=== PATIENT | female | born 1995 | race Caucasian/White ===

== ENCOUNTER 2020-03-07 11:36 | Emergency (ER) | payer OTHER, SELFPAY ==
[~2020-03-07] VITALS: Ht 167.6 cm; Wt 99.8 kg
[2020-03-07 11:46] VITALS: BP 161/100
[2020-03-07 12:14] VITALS: BP 161/100
== END 2020-03-07 12:15 | disposition home or self-care (01) ==
LOC: MED 11:36
DX: U07.1 COVID-19 (principal); J32.9 Chronic sinusitis, unspecified; Z90.49 Acquired absence of other specified parts of digestive tract
CPT/HCPCS: 99283; U0003

== ENCOUNTER 2020-03-12 14:42 | Emergency (ER) | payer OTHER, SELFPAY ==
[~2020-03-12] VITALS: Ht 167.6 cm; Wt 97.5 kg
[2020-03-12 15:01] VITALS: BP 108/65
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
--- NOTE | 2020-03-12 15:34 | NUR ---
Patient discharged with v/s stable. Written and verbal after care instructions given and explained. Patient alert, oriented and verbalized understanding of instructions. Ambulatory with steady gait. All questions addressed prior to discharge. ID band removed. Patient advised to follow up with PMD. Rx of ZOFRAN & NAPROSYN given. Patient educated on indication of medication including possible reaction and side effects. Opportunity to ask questions provided and answered.
[2020-03-12 15:35] VITALS: BP 108/65
== END 2020-03-12 15:34 | disposition home or self-care (01) ==
LOC: MED 14:42
DX: U07.1 COVID-19 (principal); R63.0 Anorexia; Z90.49 Acquired absence of other specified parts of digestive tract
CPT/HCPCS: 99283

== ENCOUNTER 2020-03-30 08:36 | Emergency (ER) | payer OTHER, SELFPAY ==
[~2020-03-30] VITALS: Ht 167.6 cm; Wt 101.6 kg
[2020-03-30 08:44] VITALS: BP 128/73
--- NOTE | 2020-03-30 08:48 | NUR ---
P AMBULATED TO BED 2.
--- NOTE | 2020-03-30 08:49 | NUR ---
24YO F C/O ANXIETY X 1 MONTH, WORSENING YESTERDAY. STATES SHE FEELS ANXIOUS DUE TO COVID + TEST LASY 02/28. UPON ASSESSMENT, PT SLIGHTLY TACHYCARDIC AT 100BPM, ALL OTHER VITALS WITHIN NORMAL RANGE. CLEAR BREATH SOUNDS. PT RESTING IN BED COMFORTABLY. ERMD MADE AWARE. medhx: asthma NKA
[2020-03-30 09:22] VITALS: BP 128/73
== END 2020-03-30 09:22 | disposition home or self-care (01) ==
LOC: MED 08:36
DX: U07.1 COVID-19 (principal); F41.9 Anxiety disorder, unspecified; J45.909 Unspecified asthma, uncomplicated; Z90.49 Acquired absence of other specified parts of digestive tract
CPT/HCPCS: 99283

== ENCOUNTER 2021-08-08 20:05 | Emergency (ER) | payer OTHER ==
[~2021-08-08] VITALS: Ht 167.6 cm; Wt 90.7 kg
[2021-08-08 20:15] VITALS: BP 142/95
--- NOTE | 2021-08-08 20:59 | NUR ---
PT AMBULATED TO BED 1
[2021-08-08] MEDS ORDERED: ALBU0.0912 INH (22:27)
[2021-08-08] MEDS ORDERED: ROBAC PO (22:27)
[2021-08-08] MEDS ORDERED: PRED20TA5 PO (22:27)
[2021-08-08] MEDS ORDERED: predniSONE 20 MG TAB PO ONE (23:00)
[2021-08-08 23:45] VITALS: BP 129/72
--- NOTE | 2021-08-08 23:46 | NUR ---
Patient discharged with v/s stable. Written and verbal after care instructions given and explained. Patient alert, oriented and verbalized understanding of instructions. Ambulatory with steady gait. All questions addressed prior to discharge. ID band removed. Patient advised to follow up with PMD. Rx of ALBUTEROL, PREDNISONE, CODEINE PHOSPHATE given. Patient educated on indication of medication including possible reaction and side effects. Opportunity to ask questions provided and answered.
[2021-08-09] MEDS ORDERED: ROBAC PO (12:45)
[2021-08-09] MEDS ORDERED: PRED20TA5 PO (12:45)
[2021-08-09] MEDS ORDERED: ALBU0.0912 INH (12:45)
== END 2021-08-08 23:46 | disposition home or self-care (01) ==
LOC: MED 20:05
DX: J20.9 Acute bronchitis, unspecified (principal); J45.909 Unspecified asthma, uncomplicated; Z79.899 Other long term (current) drug therapy; Z90.49 Acquired absence of other specified parts of digestive tract; Z98.890 Other specified postprocedural states
CPT/HCPCS: 71045; 99283; J7512; Q0092

== ENCOUNTER 2021-09-16 10:59 | Emergency (ER) | payer OTHER ==
[~2021-09-16] VITALS: Ht 167.6 cm; Wt 108.9 kg
[~2021-09-16 10:59] MED LIST: ALBU0.0912 INH; PRED20TA5 PO; ROBAC PO
[2021-09-16 11:04] VITALS: BP 123/94
--- NOTE | 2021-09-16 11:20 | NUR ---
RAD AT BEDSIDE
[2021-09-16] MEDS ORDERED: IBUP-2213 PO (12:35)
[2021-09-16] MEDS: IBUPROFEN 600 MG TAB PO ONE (12:41)
[2021-09-16 12:42] VITALS: BP 109/70
== END 2021-09-16 12:43 | disposition home or self-care (01) ==
LOC: MED 10:59
DX: S63.612A Unspecified sprain of right middle finger, initial encounter (principal); R03.0 Elevated blood-pressure reading, without diagnosis of hypertension; J45.909 Unspecified asthma, uncomplicated; X58.XXXA Exposure to other specified factors, initial encounter; Y93.89 Activity, other specified; Y92.89 Other specified places as the place of occurrence of the external cause; Y99.8 Other external cause status
CPT/HCPCS: 73130; 99283

== ENCOUNTER 2022-10-28 08:30 | Emergency (ER) | payer OTHER ==
[~2022-10-28] VITALS: Ht 167.6 cm; Wt 99.8 kg
[~2022-10-28 08:30] MED LIST changes: +IBUP-2213 PO
[2022-10-28 08:52] VITALS: BP 125/86; PULSE 90; RESP 18; TEMP 98.1; O2SAT 98
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
--- NOTE | 2022-10-28 09:23 | NUR ---
Patient being evaluated by Dr. Hill at bedside.
[2022-10-28] MEDS ORDERED: IBUPROFEN 400 MG TAB PO ONE (09:25)
[2022-10-28] MEDS ORDERED: NAPR-1704 PO (09:45)
[2022-10-28 10:02] VITALS: BP 122/74; PULSE 89; RESP 19; TEMP 98.2; O2SAT 98
== END 2022-10-28 10:07 | disposition home or self-care (01) ==
LOC: MED 08:30
DX: S29.011A Strain of muscle and tendon of front wall of thorax, initial encounter (principal); J45.909 Unspecified asthma, uncomplicated; Z79.899 Other long term (current) drug therapy; Z98.51 Tubal ligation status; V49.88XA Car occupant (driver) (passenger) injured in other specified transport accidents, initial encounter; Y93.89 Activity, other specified; Y92.89 Other specified places as the place of occurrence of the external cause; Y99.8 Other external cause status
CPT/HCPCS: 71045; 99283

== ENCOUNTER 2023-02-12 10:45 | Emergency (ER) | payer OTHER ==
[~2023-02-12] VITALS: Ht 167.6 cm; Wt 113.6 kg
[~2023-02-12 10:45] MED LIST changes: +NAPR-1704 PO
[2023-02-12 11:00] VITALS: BP 110/75; PULSE 81; RESP 20; TEMP 97.9; O2SAT 97
[2023-02-12 12:35] LABS: FLU A ANTIGEN negative (NEGATIVE); FLU B ANTIGEN NEGATIVE (NEGATIVE)
[2023-02-12] MEDS ORDERED: AZIT250T4 PO (12:50)
[2023-02-12] MEDS ORDERED: ALBU0.0912 INH (12:50)
[2023-02-12] MEDS ORDERED: PROM118S5 PO (12:50)
[2023-02-12] MEDS ORDERED: PRED10TA5 PO (12:50)
[2023-02-12] MEDS ORDERED: MUC600 PO (12:50)
== END 2023-02-12 12:55 | disposition home or self-care (01) ==
LOC: MED 10:45
DX: J20.9 Acute bronchitis, unspecified (principal); Z20.822 Contact with and (suspected) exposure to COVID-19; F41.9 Anxiety disorder, unspecified; Z79.899 Other long term (current) drug therapy
CPT/HCPCS: 36415; 71046; 87449; 99284

== ENCOUNTER 2023-07-25 18:10 | Emergency (ER) | payer OTHER ==
[~2023-07-25] VITALS: Ht 170.2 cm; Wt 117.9 kg
[~2023-07-25 18:10] MED LIST changes: +AZIT250T4 PO; +MUC600 PO; +PRED10TA5 PO; +PROM118S5 PO
[2023-07-25 18:23] VITALS: BP 141/104; PULSE 94; RESP 17; TEMP 98; O2SAT 97
[2023-07-25 19:19] LABS: BASOPHILS # (AUTO) 0.1 K/uL (0.00-0.22); BASOPHILS % (AUTO) 0.6 % (0.0-2.0); EOSINOPHILS # (AUTO) 0.1 K/uL (0-0.4); EOSINOPHILS % (AUTO) 1.3 % (0.0-4.0); HEMATOCRIT 37.4 % (36-48); LYMPHOCYTES # (AUTO) 2.4 K/uL (2.5-16.5); LYMPHOCYTES % (AUTO) 26.4 % (20.5-51.1); MEAN CORPUSCULAR HEMOGLOBIN 30 pg (27-31); MEAN CORPUSCULAR HGB CONC 35 g/dL (33-37); MEAN CORPUSCULAR VOLUME 85.2 fL (80-94); MONOCYTES # (AUTO) 0.6 K/uL (0.8-1.0); MONOCYTES % (AUTO) 6.5 % (1.7-9.3); NEUTROPHILS % (AUTO) 65.2 % (42.2-75.2); PLATELET COUNT (AUTO) 337 K/uL (140-450); RED BLOOD CELL COUNT(AUTO) 4.38 MIL/uL (4.20-5.40); RED CELL DISTRIBUTION WIDTH 13.6 % (11.6-13.7); WHITE BLOOD COUNT (AUTO) 9.2 K/uL (4.8-10.8)
[2023-07-25 19:30] LABS: ANION GAP 13.9 (8-16); CALCIUM 8.6 mg/dL (8.5-10.1); CARBON DIOXIDE 23.9 mmol/L (21-32); CREATININE 0.7 mg/dL (0.6-1.3); POTASSIUM 3.8 mmol/L (3.5-5.1)
[2023-07-25 19:34] LABS: INR 1.04 (0.8-1.2); PARTIAL THROMBOPLASTIN TIME 28.8 secs (22-35.6); PROTHROMBIN TIME 10.9 secs (10.8-13.4)
[2023-07-25 19:40] VITALS: BP 141/104; PULSE 94; RESP 17; TEMP 98; O2SAT 97
== END 2023-07-25 20:17 | disposition left against medical advice (07) ==
LOC: MED 18:10
DX: M25.512 Pain in left shoulder (principal); R07.9 Chest pain, unspecified; Z79.899 Other long term (current) drug therapy; V49.88XA Car occupant (driver) (passenger) injured in other specified transport accidents, initial encounter; Y93.89 Activity, other specified; Y92.89 Other specified places as the place of occurrence of the external cause; Y99.8 Other external cause status
CPT/HCPCS: 36415; 71045; 73030; 80048; 83880; 84484; 85025; 85610; 85730; 93005; 99285; Q0092

== ENCOUNTER 2023-09-21 15:25 | Emergency (ER) | payer OTHER ==
[~2023-09-21] VITALS: Ht 170.2 cm; Wt 113.4 kg
[2023-09-21 15:30] VITALS: BP 124/82; PULSE 82; RESP 18; TEMP 97.4; O2SAT 99
[2023-09-21] MEDS: MECLIZINE 25 MG TAB PO ONE (15:51)
[2023-09-21] MEDS ORDERED: ATA25 PO (16:05)
[2023-09-21 16:23] VITALS: BP 112/59; PULSE 79; RESP 17; TEMP 97.4; O2SAT 99
[2023-09-21] MEDS ORDERED: MECL-303 PO (19:52)
== END 2023-09-21 16:23 | disposition home or self-care (01) ==
LOC: MED 15:25
DX: R42 Dizziness and giddiness (principal); F41.9 Anxiety disorder, unspecified; Z98.51 Tubal ligation status; Z90.49 Acquired absence of other specified parts of digestive tract; Z79.1 Long term (current) use of non-steroidal anti-inflammatories (NSAID); Z79.899 Other long term (current) drug therapy
CPT/HCPCS: 93005; 99283; J8597

== ENCOUNTER 2023-10-17 12:28 | Emergency (ER) | payer OTHER ==
[~2023-10-17] VITALS: Ht 170.2 cm; Wt 111.1 kg
[~2023-10-17 12:28] MED LIST changes: +ATA25 PO; +MECL-303 PO
[2023-10-17 12:40] VITALS: BP 110/79; PULSE 85; RESP 18; TEMP 97.6; O2SAT 99
[2023-10-17] MEDS: NACL 0.9% 1,000 ML IV ONE (13:40)
[2023-10-17 13:41] LABS: BASOPHILS # (AUTO) 0.1 K/uL (0.00-0.22); BASOPHILS % (AUTO) 0.7 % (0.0-2.0); EOSINOPHILS # (AUTO) 0.2 K/uL (0-0.4); EOSINOPHILS % (AUTO) 1.8 % (0.0-4.0); HEMATOCRIT 39.8 % (36-48); HEMOGLOBIN 13.5 g/dL (12.0-16.0); LYMPHOCYTES # (AUTO) 2.6 K/uL (2.5-16.5); LYMPHOCYTES % (AUTO) 28.9 % (20.5-51.1); MEAN CORPUSCULAR HEMOGLOBIN 29 pg (27-31); MEAN CORPUSCULAR HGB CONC 34 g/dL (33-37); MEAN CORPUSCULAR VOLUME 84.9 fL (80-94); MONOCYTES # (AUTO) 0.6 K/uL (0.8-1.0); MONOCYTES % (AUTO) 6.3 % (1.7-9.3); NEUTROPHILS # (AUTO) 5.5 K/uL (1.8-7.7); NEUTROPHILS % (AUTO) 62.3 % (42.2-75.2); PLATELET COUNT (AUTO) 396 K/uL (140-450); RED BLOOD CELL COUNT(AUTO) 4.69 MIL/uL (4.20-5.40); RED CELL DISTRIBUTION WIDTH 13.9 % (11.6-13.7); WHITE BLOOD COUNT (AUTO) 8.9 K/uL (4.8-10.8)
[2023-10-17] MEDS: diazePAM 5 MG TAB PO ONE (13:41)
[2023-10-17 13:57] LABS: ANION GAP 15.3 (8-16); CALCIUM 8.8 mg/dL (8.5-10.1); CARBON DIOXIDE 22.8 mmol/L (21-32); CREATININE 0.7 mg/dL (0.6-1.3); POTASSIUM 4.1 mmol/L (3.5-5.1)
[2023-10-17 14:00] LABS: ALBUMIN 3.7 g/dL (3.4-5.0); TOTAL BILIRUBIN 0.3 mg/dL (0.0-1.0)
== END 2023-10-17 14:56 | disposition home or self-care (01) ==
LOC: MED 12:28
DX: R42 Dizziness and giddiness (principal); R51.9 Headache, unspecified; R11.2 Nausea with vomiting, unspecified; F41.9 Anxiety disorder, unspecified; Z79.899 Other long term (current) drug therapy
CPT/HCPCS: 36415; 80048; 80076; 81025; 85025; 93005; 96360; 99284; J7030

== ENCOUNTER 2023-11-09 13:32 | Emergency (ER) | payer OTHER ==
[~2023-11-09] VITALS: Ht 200.7 cm; Wt 113.2 kg
[2023-11-09 13:47] VITALS: BP 113/68; PULSE 85; RESP 19; TEMP 98.1; O2SAT 97
[2023-11-09 15:03] VITALS: BP 113/68; PULSE 85; RESP 19; TEMP 98.1; O2SAT 97
== END 2023-11-09 15:03 | disposition home or self-care (01) ==
LOC: MED 13:32
DX: R42 Dizziness and giddiness (principal); Z90.49 Acquired absence of other specified parts of digestive tract; Z98.51 Tubal ligation status; Z79.1 Long term (current) use of non-steroidal anti-inflammatories (NSAID); Z79.899 Other long term (current) drug therapy
CPT/HCPCS: 99281